=== PATIENT | female | born 1990 | race Caucasian/White ===

== ENCOUNTER 2023-07-20 14:59 | Observation (INO) | payer OTHER ==
[~2023-07-20] VITALS: Ht 167.6 cm; Wt 80.1 kg
[2023-07-20 16:04] LABS: BASO % 0.3 % (0.0-2.0); GRAN # 9.5 K/mm3 (1.4-6.5); GRAN % 86.6 % (42.2-75.2); HEMOGLOBIN 12.3 g/dl (12.5-16.0); LYMPH # 1.2 K/mm3 (1.2-3.4); LYMPH % 11.3 % (20.0-51.0); MEAN CELL VOLUME 93 fl (80.0-100.0); MEAN CORPUSCULAR HEMOGLOBIN 31 pg (27-31); MEAN CORPUSCULAR HGB CONC 33 g/dl (33.0-37.0); MEAN PLATELET VOLUME 9.5 fl (7.4-10.4); MONO # 0.2 K/mm3 (0.1-0.6); MONO % 1.5 % (1.7-9.3); PLATELET COUNT 406 K/mm3 (130-400); RED BLOOD COUNT 3.97 M/mm3 (4.10-5.30)
[2023-07-20 16:11] LABS: ALANINE AMINOTRANSFERASE 37 U/L (0-55); ALBUMIN 4.1 gm/dL (3.5-5.0); ALKALINE PHOSPHATASE 53 U/L (40-150); ANION GAP 9 mmol/L (7-16); AST,SGOT 49 U/L (5-34); BILIRUBIN,TOTAL 0.2 mg/dL (0.2-1.2); BLOOD UREA NITROGEN 14 mg/dL (7-19); C-REACTIVE PROTEIN 0.23 mg/dL (0.00-0.50); CALCIUM 8.9 mg/dL (8.4-10.2); CARBON DIOXIDE 23 mmol/L (22-29); CHLORIDE 106 mmol/L (98-107); CREATININE, serum 0.81 mg/dL (0.57-1.11); GLUCOSE 124 mg/dL (70-99); LIPASE 34 U/L (8-78); POTASSIUM 3.9 mmol/L (3.5-4.5); SODIUM 138 mmol/L (136-145); TOTAL PROTEIN 7.4 gm/dL (6.2-8.1)
[2023-07-20 16:18] LABS: TROPONIN-I < 0.010 ng/mL (0.00-0.033)
[2023-07-20 16:31] LABS: HEMATOCRIT 36.8 % (37.0-47.0)
[2023-07-20 19:25] VITALS: O2SAT 98
[2023-07-20] MEDS ORDERED: CELEXA 20MG20 MG/TAB PO (20:12)
[2023-07-20 20:20] VITALS: BP 108/63; PULSE 68; TEMP 98
--- NOTE | 2023-07-20 20:20 | NUR ---
PT ARRIVED TO ROOM 346 FROM ED FOR CHOLECYSTITIS. VSS. A&O X4. STATES PAIN IN HER RUQ ABD IS 5/10, GIVEN PRN SEE MAR. DENIES N/V. IVF INFUSING TO RIGHT AC. EDUCATED ON NPO @ 0000. CALL LIGHT IN REACH & PT DENYING FURTHER NEEDS AT THIS TIME.
[2023-07-20 21:00] VITALS: BP_SYST 115
[2023-07-20 23:46] VITALS: BP 108/51; PULSE 60; TEMP 99.3
[2023-07-21] VITALS (12 sets, daily range): BP systolic 96–119; BP diastolic 41–64; PULSE 60–85; TEMP 98.3–98.9
--- NOTE | 2023-07-21 06:13 | NUR ---
PT RATING PAIN 10/08 & STATES SHE DOES NOT NEED ANY PAIN MEDS AT THIS TIME. STATES THAT THE PRN DILAUDID HELPED HER PAIN & ALOUD HER TO FINALLY GET SOME REST. NO C/O N/V. CALL LIGHT IN REACH & DENYING FURTHER NEEDS.
--- NOTE | 2023-07-21 06:48 | NUR ---
Pt doing okay this morning. She has slight complaint of headache and some abd tenderness. Pt aware that she is going to have surgery this morning. Spouse is at bedside. Call sarika madison
--- NOTE | 2023-07-21 07:30 | NUR ---
Pt off the floor for surgery at this time
[2023-07-21] MEDS ORDERED: NORCO 325 MG-51 TAB PO ×5 (09:21→12:00)
[2023-07-21] MEDS ORDERED: MOTRIN 600600 MG/TAB PO ×5 (09:21→12:00)
[2023-07-21] MEDS ORDERED: AMOXICILLIN 8751 TAB PO ×5 (09:22→12:00)
--- NOTE | 2023-07-21 10:01 | NUR ---
Pt has arrived back from [place]. She is alert and oriented, slightly drowsy. Pt is slightly tearful. States that she feels a lot of pressure when she takes a deep breath. O2 sats 99% on room air. Spouse is at bedside. Assisted pt with sitting up some in bed, pt reported this made her feel a little better. Encouraged her to rest and not fight the tiredness. VSS, will continue to monitor
--- NOTE | 2023-07-21 11:06 | NUR ---
Pt doing well, reports the chest pressure with deep breaths is getting better. Assisted pt up to the restroom, she did well with standby assist. Tolerated pain with movement
--- NOTE | 2023-07-21 12:10 | NUR ---
Pt has been up walking in the halls, did well. Some pain increase, PRN pain medication given. Pt has tolerated crackers with peanut butter and water at this time. Will continue to monitor. Awaiting discharge order from Dr Chavez
--- NOTE | 2023-07-21 12:31 | NUR ---
Reviewed discharge instructions with pt and spouse. Discussed new prescriptions and follow up appointment. Gave pt 2 extra augmentin to go home with as all pharmacies in [facility] are closed. Discussed with Dr Chavez and pharmacy about this. INT removed from right AC. Pt getting dressed at this time. Informed her to notify nursing when she is ready to go so that we can wheelchair her out.
--- NOTE | 2023-07-21 12:42 | NUR ---
Pt escorted out at this time
== END 2023-07-21 12:47 | disposition home or self-care (01) ==
LOC: COL.ER 14:59 → SURG 18:39
PROVIDERS: Nurse Practitioner; ADMIT Surgery
DX: K80.12 Calculus of gallbladder with acute and chronic cholecystitis without obstruction (principal)
CPT/HCPCS: G0378; J1100; J1170; J1885; J2405; J2543; J2704; J3010; J7030; J7120